=== PATIENT | female | born 1965 | race Caucasian/White ===

== ENCOUNTER → 2021-02-26 | Outpatient (REF) | payer BC | LOC: M SFHCCLAY 11:09 | PROVIDERS: ATTEND Family Medicine | DX: J02.9 Acute pharyngitis, unspecified (principal) ==

== ENCOUNTER → 2021-08-21 | Outpatient (REF) | payer BC, OTHER | LOC: M SFHCCLAY 07:16 | PROVIDERS: ATTEND Nurse Practitioner Family | DX: Z12.4 Encounter for screening for malignant neoplasm of cervix (principal) ==